=== PATIENT | male | born 1985 | race Caucasian/White ===

== ENCOUNTER 2016-10-11 11:38 | Emergency (ER) | payer SELFPAY ==
--- NOTE | 2016-10-11 14:07 | RAD ---
INDICATION: Cutting trauma left middle finger. TECHNIQUE: 3 views of the left middle finger were obtained. FINDINGS: There is diffuse soft tissue swelling present around the middle and distal phalanges. There is bandage material which projects over the region limiting the study. No fracture is seen. Joint spaces appear maintained. IMPRESSION: LIMITED EXAM, SOFT TISSUE INJURY, NO FRACTURE IS SEEN.
[2016-10-11] MEDS ORDERED: Lidocaine 2% PF* 5 ML VIAL ONE (15:30)
--- NOTE | 2016-10-11 15:44 | UC ---
Laceration HPI - HPI Summary HPI Summary: PT WORKS A [employer] AND ONE OF HIS COWORKERS ACCIDENTALLY CAUGHT HIS LEFT MIDDLE FINGER WITH POWER FUNMILAYO. HAS SEVERAL LACERATIONS TO DISTAL LEFT 3RD FINGER. TETANUS BOOSTED 05/15/2012. - History Of Current Complaint Chief Complaint: UCLaceration Stated Complaint: FINGER LACERATION Time Seen by Provider: 10/11/16 14:47 Hx Obtained From: Patient Laceration Location: Finger - LEFT 3RD Mechanism Of Injury: Sharp Trauma Onset/Duration: Sudden Onset, Lasting Hours, Still Present Severity: Moderate Pain Intensity: 8 Pain Scale Used: 0-10 Numeric Aggravating Factors: Movement Related History: Occupational Injury, Dominant Hand Right - Allergies/Home Medications Allergies/Adverse Reactions: Allergies Allergy/AdvReac Type Severity Reaction Status Date / Time Bee Venom Allergy Severe Anaphylatic Verified 10/11/16 13:05 Shock Penicillins Allergy Unknown Unknown Verified 10/11/16 13:05 Reaction Details PMH/Surg Hx/FS Hx/Imm Hx Previously Healthy: Yes Endocrine History Of: Denies: Diabetes, Thyroid Disease Cardiovascular History Of: Denies: Cardiac Disorders, Hypertension Respiratory History Of: Denies: COPD, Asthma GI/ History Of: Denies: Ulcer, Renal Disease - Surgical History Surgical History: Yes Surgery Procedure, Year, and Place: right shoulder surgery. HERNIA REPAIR - Family History Known Family History: Negative: Hypertension - Social History Alcohol Use: Occasionally Substance Use Type: None Smoking Status (MU): Former Smoker - Immunization History Most Recent Tetanus Shot: 05/15/2012 Review of Systems Constitutional: Negative Skin: Other - LACERATION Respiratory: Negative Cardiovascular: Negative Gastrointestinal: Negative All Other Systems Reviewed And Are Negative: Yes Physical Exam Triage Information Reviewed: Yes Appearance: Well-Appearing, No Pain Distress, Well-Nourished Vital Signs: Initial Vital Signs Temp 98.8 F 10/11/16 13:07 Pulse 95 10/11/16 13:07 Resp 16 10/11/16 13:07 BP 146/89 10/11/16 13:07 Pulse Ox 98 10/11/16 13:07 Vital Signs Reviewed: Yes Eyes: Positive: Conjunctiva Clear ENT: Positive: Hearing grossly normal Neck: Positive: Supple Respiratory: Positive: No respiratory distress, No accessory muscle use Cardiovascular: Positive: Pulses Normal Abdomen Description: Positive: Soft Musculoskeletal: Positive: ROM Limited @ - LEFT 3RD FINGER, Edema @ - LEFT 3RD FINGER Neurological: Positive: Alert Psychological: Positive: Age Appropriate Behavior Skin: Positive: Other - 3 LINEAR LACERATION DISTAL LEFT 3RD FINGER: 1CM, 3CM, 1CM Laceration Repair - Laceration Repair 1 Description: Linear Laceration Size After Repair: Length (cm) - 1CM, Width (mm) - 0MM, Depth (mm) - 2MM Type Injection: Digital Irrigation With Pressure Irrigation Device: Yes Closure Material: Sutures - 3 SIMPLE INTERRUPTED Closure Method: Single Layer Suture Of: Skin Suture Type: Other - 5-0 SURGIPRO 2 Description: Stellate Laceration Size After Repair: Length (cm) - 3CM, Width (mm) - 0MM, Depth (mm) - 4MM Type Injection: Digital Anesthesia Used: 2.0% Lido Irrigation With Pressure Irrigation Device: Yes Closure Material: Sutures - 7 SIMPLE INTERRUPTED Closure Method: Single Layer Suture Of: Skin Suture Type: Other - 5-0 SURGIPRO 3 Description: Linear Laceration Size After Repair: Length (cm) - 1CM, Width (mm) - 0MM, Depth (mm) - 0MM Type Injection: Digital Anesthesia Used: 2.0% Lido Irrigation With Pressure Irrigation Device: Yes Closure Material: Sutures - 2 SIMPLE INTERRUPTED Closure Method: Single Layer Suture Of: Skin Suture Type: Other - 5-0 SURGIPRO Diagnostics - Radiology LEFT 3RD FINGER XRAY Xray Interpretation: Positive (See Comments) - SOFT TISSUE INJURY. NO FRACTURE Radiology Interpretation Completed By: Radiologist Laceration Course/Dx - Differential Dx - Laceration/Wound Provider Diagnoses: LACERATION REPAIR LEFT 3RD FINGER Discharge - Discharge Plan Condition: Stable Disposition: HOME Prescriptions: Hydrocodone-Acetaminophen [Lorcet 5-325 mg] 1 tab PO QID PRN #15 tab MDD 4 PRN Reason: Pain Patient Education Materials: Finger Laceration (ED) Forms: *Work Release Referrals: Altaf Ta MD [Primary Care Provider] - If Needed Additional Instructions: XRAY TODAY NEGATIVE FOR ANY BONY INVOLVEMENT. APPLY THIN LAYER ANTIBIOTIC OINTMENT UNDER BANDAGE FOR FIRST 3 DAYS ONLY. CHANGE BANDAGE DAILY AND NEEDED IF IT BECOMES SOILED OR WET. SEEK FOLLOW-UP IF YOU DEVELOP SPREADING REDNESS OF THE SKIN, PURULENT DRAINAGE, FEVER, INCREASED PAIN OR ANY OTHER CONCERNING SYMPTOMS. RETURN FOR SUTURE REMOVAL IN 10-12 DAYS
[2016-10-11 17:09] VITALS: BP 143/93
== END 2016-10-11 17:07 | disposition home or self-care (01) ==
LOC: UCEAST 11:38
DX: S61.213A Laceration without foreign body of left middle finger without damage to nail, initial encounter (principal); W29.8XXA Contact with other powered hand tools and household machinery, initial encounter; Y93.9 Activity, unspecified; Y99.9 Unspecified external cause status
CPT/HCPCS: 12002; 73140; 99212; G0463

== ENCOUNTER 2016-10-23 07:06 | Emergency (ER) | payer SELFPAY ==
[2016-10-23] MEDS ORDERED: Benzoin Compound STICK ONE (07:15)
[2016-10-23 07:16] VITALS: BP 135/80
--- NOTE | 2016-10-23 07:32 | UC ---
HPI Wound/Suture Re-check - HPI Summary HPI Summary: The patient comes in today for: 1. Left middle finger laceration/suture removal. Onset: 12 days ago. Palliative/provocative: Nothing. Quality: no pain. Region: Left middle finger. Severity: 0/10 Time: Constant. Associated symptoms: Tetanus: 5 years ago. * - History Of Current Complaint Chief Complaint: UCLaceration Stated Complaint: SUTURE REMOVAL Time Seen by Provider: 10/23/16 07:24 Hx Obtained From: Patient - Allergies/Home Medications Allergies/Adverse Reactions: Allergies Allergy/AdvReac Type Severity Reaction Status Date / Time Bee Venom Allergy Severe Anaphylatic Verified 10/11/16 13:05 Shock Penicillins Allergy Unknown Unknown Verified 10/11/16 13:05 Reaction Details Home Medications: Home Medications Bupropion XL* [Wellbutrin XL *] 10/23/16 [History] PMH/Surg Hx/FS Hx/Imm Hx Previously Healthy: No - Bee sting allergy. Endocrine History Of: Denies: Diabetes, Thyroid Disease, Hyperthyroidism, Hypothyroidism, Dyslipidemia Cardiovascular History Of: Denies: Cardiac Disorders, Hypertension, Pacemaker/ICD, Myocardial Infarction , Congestive Heart Failure, Atrial Fibrillation, Deep Vein Thrombosis, Bleeding Disorders Respiratory History Of: Denies: COPD, Asthma, Bronchitis, Pneumonia, Pulmonary Embolism GI/ History Of: Reports: Gastroesophageal Reflux Denies: Ulcer, Gastrointestinal Bleed, Gall Bladder Disease, Kidney Stones, Diverticulitis, Renal Disease, Urosepsis Neurological History Of: Denies: TIA, CVA, Dementia, Seizures, Migraine Psychological History Of: Reports: Depression - Seasonal. Denies: Anxiety, Bipolar Disorder, Schizophrenia, Post Traumatic Stress Disorder Cancer History Of: Denies: Lung Cancer, Colorectal Cancer, Breast Cancer, Prostate Cancer, Cervical Cancer Other History Of: Negative For: HIV, Hepatitis B, Hepatitis C, Anticoagulant Therapy - Surgical History Surgical History: Yes Surgery Procedure, Year, and Place: right shoulder surgery. HERNIA REPAIR - Family History Known Family History: Negative: Cardiac Disease, Hypertension, Diabetes - Social History Occupation: Employed Full-time Alcohol Use: Occasionally Substance Use Type: None Smoking Status (MU): Former Smoker - Immunization History Most Recent Tetanus Shot: 05/15/2012 Review of Systems Constitutional: Negative Skin: Negative Eyes: Negative ENT: Negative Respiratory: Negative Cardiovascular: Negative Gastrointestinal: Negative All Other Systems Reviewed And Are Negative: Yes Physical Exam Triage Information Reviewed: Yes Appearance: Well-Appearing, No Pain Distress, Well-Nourished Vital Signs: Initial Vital Signs Temp 98.6 F 10/23/16 07:12 Pulse 88 10/23/16 07:12 Resp 16 10/23/16 07:12 BP 135/80 10/23/16 07:12 Pulse Ox 97 10/23/16 07:12 Eyes: Positive: Conjunctiva Clear. Negative: Discharge ENT: Positive: Hearing grossly normal. Negative: Pharyngeal erythema, Nasal congestion, Nasal drainage, TM bulging, TM dull, TM red, Tonsillar swelling, Tonsillar exudate Dental: Negative: Gross Decay/Caries @, Dental Fracture @ Neck: Positive: Supple, Nontender, No Lymphadenopathy. Negative: Nuchal Rigidity Respiratory: Positive: Lungs clear, No respiratory distress, No accessory muscle use. Negative: Crackles, Wheezing Cardiovascular: Positive: RRR, No Murmur Abdomen Description: Positive: Nontender, No Organomegaly, Soft. Negative: Distended Musculoskeletal: Positive: Strength Intact, ROM Intact, No Edema Neurological: Positive: Alert, Muscle Tone Normal Psychological: Positive: Age Appropriate Behavior, Consolable Skin: Positive: Other - Laceration site of middle left finger well healed.. Negative: rashes, breakdown Course/Dx - Course Course Of Treatment: All sutures were removed. No erythema or discharge or dehisence. - Differential Dx - Laceration/Wound Provider Diagnoses: Suture removal Discharge - Discharge Plan Condition: Stable Disposition: HOME Patient Education Materials: Stitches Removal (ED), Steristrips (ED) Referrals: Altaf Ta MD [Primary Care Provider] - If Needed (Please see your primary care provider as needed. If you don't have one, please contact the Physician Referral phone number. Until then, you can see us.)
== END 2016-10-23 07:53 | disposition home or self-care (01) ==
LOC: UCEAST 07:06
DX: Z48.02 Encounter for removal of sutures (principal); Z88.0 Allergy status to penicillin; Z91.030 Bee allergy status; K21.9 Gastro-esophageal reflux disease without esophagitis; F33.9 Major depressive disorder, recurrent, unspecified; Z87.891 Personal history of nicotine dependence
CPT/HCPCS: 99211; G0463